=== PATIENT | male | born 1950 | race Two or more races ===

== ENCOUNTER 2023-06-23 06:38 | Day surgery (SDC) | payer OTHER | END 2023-06-23 16:10 | disposition home or self-care (01) | LOC: AMB-ENDOS 06:38 → CIR.AMB 06:38 → AMB-ENDOS 16:10 | PROVIDERS: ATTEND Colon & Rectal Surgery | DX: K63.5 Polyp of colon (principal); R19.4 Change in bowel habit; Z20.822 Contact with and (suspected) exposure to COVID-19 ==

== ENCOUNTER 2023-08-13 09:15 | Inpatient (IN) | payer OTHER ==
[~2023-08-13] VITALS: Ht 180.3 cm; Wt 90.7 kg
[2023-08-13] MEDS ORDERED: LOSARTAN (12:55)
[2023-08-13] MEDS ORDERED: METROPOLOL (12:55)
[2023-08-13] MEDS ORDERED: SINVASTATIN (12:56)
[2023-08-13] MEDS ORDERED: GLIPIZIDE XL2.5 MG (12:56)
[2023-08-27] MEDS ORDERED: SIMVASTATIN20 MG (08:04)
[2023-08-27] MEDS ORDERED: LOSARTAN POTAS100 MG (08:04)
[2023-08-27] MEDS ORDERED: METFORMIN HCL1000 M3 (08:04)
[2023-08-27] MEDS ORDERED: GLIMEPIRIDE2 M1 (08:04)
[2023-08-27 13:25] LABS: HEMATOCRIT 40.5 % (39.0-48.0); HEMOGLOBIN 13.6 g/dL (13-16.00); MEAN CELL VOLUME 91.2 fL (80.0-100.00); MEAN CORPUSCULAR HEMOGLOBIN 30.7 pg (27.00-32.0); MEAN CORPUSCULAR HGB CONC 33.6 g/dl (32.0-36.0); RED BLOOD COUNT 4.44 M/uL (4.00-6.00); RED CELL DISTRIBUTION WIDTH 13.5 % (11.5-14.5)
[2023-08-27 13:52] LABS: PLATELET COUNT 200 K/uL (150-450)
[2023-08-27 14:19] LABS: ALBUMIN 3.7 gm/dL (3.4-5.0); CALCIUM 8.9 mg/dL (8.5-10.1); CREATININE SERUM 1.26 mg/dL (0.70-1.30); GFR 56.42; MAGNESIUM 1.8 mg/dL (1.8-2.4); PHOSPHOROUS 3.4 mg/dL (2.5-4.9); POTASSIUM 4.69 mEq/L (3.5-5.1)
[2023-08-28 08:19] LABS: HEMATOCRIT 39.7 % (39.0-48.0); HEMOGLOBIN 13.6 g/dL (13-16.00); MEAN CELL VOLUME 90.5 fL (80.0-100.00); MEAN CORPUSCULAR HEMOGLOBIN 31.1 pg (27.00-32.0); MEAN CORPUSCULAR HGB CONC 34.3 g/dl (32.0-36.0); PLATELET COUNT 188 K/uL (150-450); RED BLOOD COUNT 4.39 M/uL (4.00-6.00); RED CELL DISTRIBUTION WIDTH 13.2 % (11.5-14.5)
[2023-08-28 08:30] LABS: ALBUMIN 3.7 gm/dL (3.4-5.0); CALCIUM 8.6 mg/dL (8.5-10.1); CREATININE SERUM 1.03 mg/dL (0.70-1.30); GFR 71.19; PHOSPHOROUS 2.4 mg/dL (2.5-4.9); POTASSIUM 4.67 mEq/L (3.5-5.1)
[2023-08-29 07:50] LABS: HEMATOCRIT 38.5 % (39.0-48.0); HEMOGLOBIN 13.1 g/dL (13-16.00); MEAN CORPUSCULAR HEMOGLOBIN 30.7 pg (27.00-32.0); MEAN CORPUSCULAR HGB CONC 34.2 g/dl (32.0-36.0); PLATELET COUNT 180 K/uL (150-450); RED BLOOD COUNT 4.27 M/uL (4.00-6.00); RED CELL DISTRIBUTION WIDTH 13.3 % (11.5-14.5)
[2023-08-29 08:25] LABS: ALBUMIN 3.5 gm/dL (3.4-5.0); CALCIUM 9.1 mg/dL (8.5-10.1); CREATININE SERUM 1.31 mg/dL (0.70-1.30); GFR 53.94; MAGNESIUM 1.8 mg/dL (1.8-2.4); PHOSPHOROUS 2.1 mg/dL (2.5-4.9); POTASSIUM 4.42 mEq/L (3.5-5.1)
[2023-08-30 07:47] LABS: CALCIUM 8.9 mg/dL (8.5-10.1); CREATININE SERUM 1.01 mg/dL (0.70-1.30); GFR 72.82; MAGNESIUM 1.9 mg/dL (1.8-2.4); PHOSPHOROUS 2.6 mg/dL (2.5-4.9); POTASSIUM 4.38 mEq/L (3.5-5.1)
[2023-08-31 06:42] LABS: HEMATOCRIT 34.4 % (39.0-48.0); HEMOGLOBIN 11.7 g/dL (13-16.00); MEAN CELL VOLUME 90.9 fL (80.0-100.00); MEAN CORPUSCULAR HEMOGLOBIN 31.1 pg (27.00-32.0); MEAN CORPUSCULAR HGB CONC 34.2 g/dl (32.0-36.0); PLATELET COUNT 193 K/uL (150-450); RED BLOOD COUNT 3.78 M/uL (4.00-6.00)
[2023-08-31 07:16] LABS: CALCIUM 8.2 mg/dL (8.5-10.1); CREATININE SERUM 0.93 mg/dL (0.70-1.30); GFR 80.09; MAGNESIUM 1.9 mg/dL (1.8-2.4); POTASSIUM 3.49 mEq/L (3.5-5.1)
[2023-09-02 07:21] LABS: HEMATOCRIT 36.3 % (39.0-48.0); HEMOGLOBIN 12.3 g/dL (13-16.00); MEAN CORPUSCULAR HEMOGLOBIN 30.4 pg (27.00-32.0); MEAN CORPUSCULAR HGB CONC 33.8 g/dl (32.0-36.0); PLATELET COUNT 213 K/uL (150-450); RED BLOOD COUNT 4.03 M/uL (4.00-6.00); RED CELL DISTRIBUTION WIDTH 13.4 % (11.5-14.5)
[2023-09-02 07:55] LABS: ALBUMIN 3.2 gm/dL (3.4-5.0); CALCIUM 8.9 mg/dL (8.5-10.1); CREATININE SERUM 1.15 mg/dL (0.70-1.30); GFR 62.69; MAGNESIUM 1.9 mg/dL (1.8-2.4); PHOSPHOROUS 2.9 mg/dL (2.5-4.9); POTASSIUM 3.93 mEq/L (3.5-5.1)
== END 2023-09-02 18:28 | disposition home or self-care (01) | DRG 331 ==
LOC: O/R 08-27 05:00 → SURH 08-27 05:00
PROVIDERS: Internal Medicine Geriatric Medicine; ADMIT Colon & Rectal Surgery; ATTEND Colon & Rectal Surgery
PROC: 07BC4ZX Excision of Pelvis Lymphatic, Percutaneous Endoscopic Approach, Diagnostic (ICD-10-PCS; 2023-08-27)
PROC: 0WQF4ZZ Repair Abdominal Wall, Percutaneous Endoscopic Approach (ICD-10-PCS; 2023-08-27)
PROC: 0DTF4ZZ Resection of Right Large Intestine, Percutaneous Endoscopic Approach (ICD-10-PCS; principal; 2023-08-27 07:00)
DX: K63.5 Polyp of colon (principal); K43.9 Ventral hernia without obstruction or gangrene; K59.00 Constipation, unspecified